=== PATIENT | female | born 2000 | race Caucasian/White ===

== ENCOUNTER 2022-12-30 20:15 | Observation (INO) ==
[2022-12-30 21:01] LABS: Appearance Urine Clear (Clear); Bacteria Urine Automated Negative (Negative); Bilirubin Urine Negative (Negative); Blood Urine Negative (Negative); Color Urine Yellow; Glucose Urine UA Negative (Negative); Ketones Urine Negative (Negative); Leukocyte Esterase Urine 1+ (Negative); Nitrite Urine Negative (Negative); Protein Urine Negative (Negative); RBC Urine Automated 0-4 /hpf (0-4); Specific Gravity Urine 1.026 (1.000-1.030); Urobilinogen Urine Negative (Negative)
[2022-12-30] MEDS ORDERED: LIDOCAINE 1%/EPINEPHRINE 1:100,000 20 ML VIAL ONE (21:15)
[2022-12-30 21:19] LABS: INR 0.9 (0.9-1.1); Partial Thromboplastin Time 29.3 Seconds (21.0-31.0); Prothrombin Time 10.4 Seconds (9.0-12.0)
[2022-12-30] MEDS ORDERED: LORazepam 2 MG/1 ML VIAL IV STA (21:20)
[2022-12-30] MEDS ORDERED: MoRPHine SULFATE 2 MG/ML CARP IV STA (21:20)
[2022-12-30] MEDS ORDERED: ONDANSETRON INJ 2 MG/ML 2 ML VIAL IV STA (21:20)
[2022-12-30 21:25] LABS: Albumin Globulin Ratio 1.5 (0.9-2); Albumin Level 5.1 gm/dl (3.4-5.0); BUN Creatinine Ratio 22.7 (10-20); Bilirubin,Total 0.4 mg/dl (0.2-1.0); Calcium 10.1 mg/dl (8.6-10.3); Creatinine Clr Calc Pharmacy 113.5 ml/min; Est GFR (African American) 143.3 ml/min; Est GFR (Non-African American) 123.6 ml/min; Globulin 3.5 gm/dl (2.5-4.0); Potassium 3.8 mmol/L (3.5-5.1); Total Protein 8.6 gm/dl (6.0-8.3)
[2022-12-30] MEDS ORDERED: PROPOFOL IV EMULSION 10 MG/ML 20 ML VIAL IV ONE (21:39)
[2022-12-30 21:48] LABS: Basophils # (auto) 0.03 K/uL (0.00-0.20); Basophils % (auto) 0.3 %; Eosinophils # (auto) 0.27 K/uL (0.00-0.50); Eosinophils % (auto) 2.5 %; Hematocrit (blood only) 43.2 % (37.0-47.0); Hemoglobin 14.6 g/dl (12.0-16.0); Immature Granulocytes # (auto) 0.05 K/uL (0.01-0.20); Immature Granulocytes % (auto) 0.5 %; Lymphocytes # (auto) 3.51 K/uL (1.20-3.40); Lymphocytes % (auto) 32.4 %; Mean Corpuscular Hemoglobin 29.2 pg (25.0-34.0); Mean Corpuscular Hgb Conc 33.8 g/dL (32.0-36.0); Mean Corpuscular Volume 86.4 fL (80.0-100.0); Mean Platelet Volume 10.7 fL (9.4-12.4); Monocytes # (auto) 0.53 K/uL (0.11-0.59); Monocytes % (auto) 4.9 %; Neutrophils # (auto) 6.43 K/uL (1.40-6.50); Neutrophils % (auto) 59.4 %; Platelet Count 310 K/uL (130-400); RDW Coefficient of Variation 12.7 % (11.5-14.5); White Blood Count 10.82 K/ul (4.8-10.8)
--- NOTE | 2022-12-30 21:50 | History & Physical Report ---
Date of Service December 30, 2022 Assessment & Plan (1) Pneumothorax: Plan: 22yo Female with PMH ADHD here for spontaneous L sided pneumothorax. Left Pneumothorax -thoravent in place -repeat CXR shows improvement of pneumothorax -Pulm consulted -admit to med tele -tylenol for pain control ADHD -continue adderall FENa: regular Code Status: Full DVT PPX: SCDs Dispo: med/tele Devora Hitchcock D.O. PGY 3, FCM History of Present Illness Chief Complaint: Pneumothorax Primary Care Provider: NO PCP 22yo Female with PMH ADHD here for spontaneous L sided pneumothorax. Thoravent was placed in ED. Patient teary and anxious in room. At this time patient denies SOB does complain of ongoing back pain since thoravent was placed. Patient states this has never happened before, no family history of pulmonary conditions. Denies nausea abd pain. Allergies Allergy/AdvReac Type Severity Reaction Status Date / Time Penicillins Allergy Unknown HAPPENED Verified 12/30/22 22:46 AN --HIVES Home Medications Medication Instructions Recorded Confirmed Type dextroamphetamine-amphetamine 10 10 mg PO TID 12/26/21 12/30/22 History mg tablet (Adderall) medroxyprogesterone 150 mg/mL 150 mg IM .[id number] 12/26/21 12/30/22 History intramuscular syringe (Depo-Provera) trazodone 50 mg tablet 50 mg PO HS PRN Sleep 12/26/21 12/30/22 History lifitegrast 5 % eye drops in a 1 drp ophthalmic (eye) DIRECTED 12/30/22 12/30/22 History dropperette (Xiidra) PRN .dry eye Past Med/Surg History Medical History No pertinent family history No pertinent past medical history Surgical History No pertinent past surgical history Social History Smoking Status: Light tobacco smoker Tobacco Type: E-cigarettes / Vaping Second Hand Exposure: No; Do You Dip or Chew Tobacco: No; Hx Alcohol Use: Yes Hx Substance Use: No Preferred Language: Thai Communication Ability: Effective Chief Cook Required: No Beliefs That Will Affect Care: None Current Living Situation: Other Current Living Situation Comment: off campus housing Feels Safe at Home: Yes Assistive Devices: None Physical Exam Constitutional: well developed, well nourished and + in distress Eyes: PERRL, conjunctivae normal, anicteric sclerae ENMT: external ear and nose normal, oropharynx normal Neck: trachea midline, no thyromegaly Respiratory: normal respiratory effort Auscultation: lungs clear to auscultation bilaterally Cardiovascular: Rate/Rhythm: regular rate and regular rhythm Extremities: no edema Chest (Breasts): Additional Comments: thoravent on left chest Gastrointestinal (Abdomen): Inspection/Auscultation: abdomen normal to inspection Percussion/Palpation: abdomen soft; abdomen nontender Skin: no rashes, warm and dry Results & Data Results & Data Vital Signs (Past 12 Hours) Vital Signs Temp Pulse Resp BP Pulse Ox O2 Del Method 12/30/22 21:19 104 H 12/30/22 21:19 107 H 22 99 Room Air 12/30/22 20:16 35.8 C L 79 18 124/84 96 Room Air Supervising Physician Co-Signing Physician Notes Attending addendum: I have physically seen this patient, have supervised the medical residents activities, and agree with the H&P unless as otherwise noted. Assessment and Plan: Spontaneous left pneumothorax- Status post Thora vent placement in ED Admit to medical telemetry Consult pulmonary Acetaminophen 650 mg by mouth every 6 hours as needed for mild pain or fever ADHD- Continue Adderall Resident Activity Tracking Resident Involvement: Resident Care Provided Care Provided: Adult Hospital Medicine
--- NOTE | 2022-12-30 22:12 | Emergency Department Note ---
Pre Sedation Assessment Vital Signs Temp Pulse Resp BP Pulse Ox O2 Del Method 12/30/22 21:19 104 H 12/30/22 21:19 107 H 22 99 Room Air 12/30/22 20:16 35.8 C L 79 18 124/84 96 Room Air Cardiovascular RRR, no murmur, no edema + regular rate + S1 normal and + S2 normal no JVD and no carotid bruit + capillary refill normal Respiratory + respiratory effort normal + breath sounds absent (Decreased breath sounds on left due to known pneumothorax. Rt lung clear) Pre-Sedation Airway Assessment Smoking Status: Current every day smoker Hx Sleep Apnea: No Hx Difficult Intubation: No Short, Thick Neck: No Thyromental Distance: > or= 3.5 Finger Breadths Oral Cavity: no Loose Teeth, no Chipped Teeth, no Dentures or no Dental Abnormalities Mallampati Class: II ASA: ASA1 NPO Status Date of Last Intake of Fluids: 12/30/22 Time of Last Intake of Fluids: 15:00 Date of Last Intake of Solid Food: 12/30/22 Time of Last Intake of Solid Foods: 15:00 Procedure Planning Contraindications for Sedation: none Current Medications Reviewed: Yes Notes The planned sedation has been discussed with the patient. Informed Consent was obtained. I have identified the patient, determined the appropriateness of sedation and have assessed the patient immediately prior to the procedure. All medicine(s) and interventions are by my order.
--- NOTE | 2022-12-30 22:14 | Emergency Department Note ---
Post Sedation Assessment Vital Signs Temp Pulse Resp BP Pulse Ox O2 Del Method 12/30/22 22:10 100 H 11 L 100 12/30/22 22:10 149/97 H 12/30/22 22:05 98 H 8 L 100 12/30/22 22:05 150/106 H 12/30/22 22:00 101 H 23 100 12/30/22 22:00 140/89 12/30/22 21:56 134/105 H 12/30/22 21:56 102 H 12 12/30/22 21:50 19 100 12/30/22 21:45 144/106 H 12/30/22 21:45 100 H 15 97 12/30/22 21:40 95 H 12 100 12/30/22 21:30 113 H 24 98 12/30/22 21:20 112 H 22 99 12/30/22 21:19 103 H 19 99 12/30/22 21:19 104 H 12/30/22 21:19 107 H 22 99 Room Air 12/30/22 20:16 35.8 C L 79 18 124/84 96 Room Air Recovery Score Activity: Moves 4 extremities Respiration: Deep Breath/Cough Consciousness: Fully Awake Oxygen Saturation: > 92% On Room Air Discharge Sedation Level of Care: Phase I Unexpected Event: None Post Sedation Plan On clinical assessment, the patient appears to have tolerated the sedation without complications. Patient is recovering as anticipated. Patient will continue to be monitored by nursing and may be discharged when sedation discharge criteria are met per below protocol. Upon Completions of procedure up to 15 minutes continue every 5 minute vital signs and the P.A.R. score; then discharge to a Phase I or Fast Track to Phase II per the following guidelines: * Discharge Patient to appropriate Phase II area if PAR is 8 or greater or return to pre- procedure baseline. The post - procedure orders will be as directed. * If PAR score is less than 8 or not return to pre-procedure baseline then patient will follow Phase I monitoring till PAR is reached for Phase II. The Phase I may be done in procedure room or may call to secure a Phase I area. * If naloxone or flumazenil are used for reversal, hold in Phase I for continued monitoring from when last reversal dose was given for a minimum of 60 minutes or longer pending the nurse and/or physician discretion of patient condition before discharge to Phase II. Please call the Sedation Physician to re-evaluate and complete post-note for discharge to Phase II area. Do NOT discharge from procedure sedation or Phase 1 until post- sedation evaluation note is complete by procedure /sedation MD Sedation Discharge Instructions to be given to the patient at discharge to home. Sedation Data Time Out Team Members Agree on the Following: Correct Patient, Correct Procedure, Correct Site-Side and Allergies Verified Site Marking Visible after Draping: Yes Team Agrees: Yes Time Out Performed Time: 21:43 Sedation Times Sedation Start Date: 12/30/22 Sedation Start Time: 21:45 Sedation End Date: 12/30/22 Sedation End Time: 21:55 Total Sedation Time: 10
--- NOTE | 2022-12-30 22:18 | Emergency Department Note ---
ED Visit Note This patient has a left-sided pneumothorax. The patient was very anxious and Dr. Belle asked me to assist in sedation. Please refer to the pre and post sedation documentation as well. I explained the risk and the benefits and the patient freely consented both verbally and written on the consent. Procedural Sedation Indication left-sided pneumothorax Total time: 10 minutes. Written consent was obtained after the risks and benefits were explained to the the patient, including, but not limited to aspiration, allergic reaction, breathing difficulties, cardiac complications, vomiting, pain, event recall, bleeding, and/or infection. Pre-sedation examination and paperwork completed. The patient was on 100% oxygen via NRB prior to the procedure. Continous end tidal CO2 monitoring, pulse oximetry, and cardiac monitoring were utilized. Suction, airway equipment, medications, respiratory equipment, and appropriate personnel were prepared prior to the initiation of the procedure. A time out was taken. Sedation was achieved utilizing a total of 50 mg of Propofol IV. She initially received 30 mg IV and received a second dose of 20 mg for a total of 50 mg. After I observed the patient had reached the appropriate level of sedation the main procedure was performed without complication. Sedation was discontinued and the monitoring continued. The patient recovered quickly from the effects of the medication without complication or adverse event. .
[2022-12-30] MEDS ORDERED: ACETAMINOPHEN 500 MG TAB PO STA (23:03)
[2022-12-30] MEDS ORDERED: ACETAMINOPHEN 500 MG TAB ONE (23:07)
--- NOTE | 2022-12-30 23:32 | Emergency Department Note ---
History of Present Illness General Chief Complaint: Referred by Doctor Stated Complaint: BLOOD CLOT?,DOC REF Time Seen by Provider: 12/30/22 20:41 History of Present Illness Onset (ago): day(s) 5 Duration: constant and progressively worsening Onset: during rest Pain Location: substernal Pain Radiation: none Severity: moderate Maximum Pain Intensity: 4 Current Pain Intensity: 4 Quality: + sharp Relieved By: + nothing Exacerbated By: + inspiration Context: no recent illness, no recent surgery, no recent immobilization, no recent travel, no trauma/injury, no new medications or no history of DVT/PE Associated symptoms: + dyspnea and + cough; no nausea, no vomiting, no diaphoresis, no syncope, no palpitations, no fever or no leg swelling Home Medications Medication Instructions Recorded Confirmed Type dextroamphetamine-amphetamine 10 10 mg PO TID 12/26/21 12/30/22 History mg tablet (Adderall) medroxyprogesterone 150 mg/mL 150 mg IM .[id number] 12/26/21 12/30/22 History intramuscular syringe (Depo-Provera) trazodone 50 mg tablet 50 mg PO HS PRN Sleep 12/26/21 12/30/22 History lifitegrast 5 % eye drops in a 1 drp ophthalmic (eye) DIRECTED 12/30/22 12/30/22 History dropperette (Xiidra) PRN .dry eye Allergies Allergy/AdvReac Type Severity Reaction Status Date / Time Penicillins Allergy Unknown HAPPENED Verified 12/30/22 22:46 AN --HIVES Past Med/Surg History Medical History No pertinent family history No pertinent past medical history Surgical History No pertinent past surgical history Social History Smoking Status: Current every day smoker Tobacco Type: E-cigarettes / Vaping Hx Substance Use: No Preferred Language: Turkish Feels Safe at Home: Yes Physical Exam Vital Signs Vital Signs - 24 hr 12/30/22 20:16 12/30/22 21:19 12/30/22 21:19 Temperature 35.8 C L Temperature Source Temporal Artery Scan Pulse Rate 79 107 H 104 H Pulse Rate [Finger] Pulse Rate from SpO2 Sensor Pulse Rhythm Regular Pulse Rhythm [Finger] Pulse Strength [Finger] Respiratory Rate 18 22 Respiratory Effort / Characteristics Respiratory Depth Normal Respiratory Pattern Blood Pressure 124/84 Blood Pressure [Right Arm] Blood Pressure Mean 97 Blood Pressure Mean [Right Arm] Blood Pressure Position [Right Arm] Pulse Oximetry 96 99 Oxygen Delivery Method Room Air Room Air Oxygen Flow Rate Sepsis Recent Fever Within 48 Hours No Sepsis New/Unexplained Change in Mental Status N/A Sepsis Action Taken by Nursing No Action Required End-Tidal CO2 End Tidal CO2 (18-54mmHg) 12/30/22 21:19 12/30/22 21:20 12/30/22 21:30 Temperature Temperature Source Pulse Rate 103 H 112 H 113 H Pulse Rate [Finger] Pulse Rate from SpO2 Sensor 106 H 111 H 111 H Pulse Rhythm Pulse Rhythm [Finger] Pulse Strength [Finger] Respiratory Rate 19 22 24 Respiratory Effort / Characteristics Respiratory Depth Respiratory Pattern Blood Pressure Blood Pressure [Right Arm] Blood Pressure Mean Blood Pressure Mean [Right Arm] Blood Pressure Position [Right Arm] Pulse Oximetry 99 99 98 Oxygen Delivery Method Oxygen Flow Rate Sepsis Recent Fever Within 48 Hours Sepsis New/Unexplained Change in Mental Status Sepsis Action Taken by Nursing End-Tidal CO2 End Tidal CO2 (18-54mmHg) 12/30/22 21:40 12/30/22 21:45 12/30/22 21:45 Temperature Temperature Source Pulse Rate 95 H 100 H Pulse Rate [Finger] Pulse Rate from SpO2 Sensor 95 H 103 H Pulse Rhythm Pulse Rhythm [Finger] Pulse Strength [Finger] Respiratory Rate 12 15 Respiratory Effort / Characteristics Respiratory Depth Respiratory Pattern Blood Pressure 144/106 H Blood Pressure [Right Arm] Blood Pressure Mean 113 Blood Pressure Mean [Right Arm] Blood Pressure Position [Right Arm] Pulse Oximetry 100 97 Oxygen Delivery Method Oxygen Flow Rate Sepsis Recent Fever Within 48 Hours Sepsis New/Unexplained Change in Mental Status Sepsis Action Taken by Nursing End-Tidal CO2 26 35 End Tidal CO2 (18-54mmHg) 12/30/22 21:50 12/30/22 21:56 12/30/22 21:56 Temperature Temperature Source Pulse Rate 102 H Pulse Rate [Finger] Pulse Rate from SpO2 Sensor 101 H Pulse Rhythm Pulse Rhythm [Finger] Pulse Strength [Finger] Respiratory Rate 19 12 Respiratory Effort / Characteristics Respiratory Depth Respiratory Pattern Blood Pressure 134/105 H Blood Pressure [Right Arm] Blood Pressure Mean 107 Blood Pressure Mean [Right Arm] Blood Pressure Position [Right Arm] Pulse Oximetry 100 Oxygen Delivery Method Oxygen Flow Rate Sepsis Recent Fever Within 48 Hours Sepsis New/Unexplained Change in Mental Status Sepsis Action Taken by Nursing End-Tidal CO2 27 31 End Tidal CO2 (18-54mmHg) 12/30/22 22:00 12/30/22 22:00 12/30/22 22:05 Temperature Temperature Source Pulse Rate 101 H Pulse Rate [Finger] Pulse Rate from SpO2 Sensor 99 H Pulse Rhythm Pulse Rhythm [Finger] Pulse Strength [Finger] Respiratory Rate 23 Respiratory Effort / Characteristics Respiratory Depth Respiratory Pattern Blood Pressure 140/89 150/106 H Blood Pressure [Right Arm] Blood Pressure Mean 99 119 Blood Pressure Mean [Right Arm] Blood Pressure Position [Right Arm] Pulse Oximetry 100 Oxygen Delivery Method Oxygen Flow Rate Sepsis Recent Fever Within 48 Hours Sepsis New/Unexplained Change in Mental Status Sepsis Action Taken by Nursing End-Tidal CO2 24 End Tidal CO2 (18-54mmHg) 12/30/22 22:05 12/30/22 22:10 12/30/22 22:10 Temperature Temperature Source Pulse Rate 98 H 100 H Pulse Rate [Finger] Pulse Rate from SpO2 Sensor 98 H 99 H Pulse Rhythm Pulse Rhythm [Finger] Pulse Strength [Finger] Respiratory Rate 8 L 11 L Respiratory Effort / Characteristics Respiratory Depth Respiratory Pattern Blood Pressure 149/97 H Blood Pressure [Right Arm] Blood Pressure Mean 122 Blood Pressure Mean [Right Arm] Blood Pressure Position [Right Arm] Pulse Oximetry 100 100 Oxygen Delivery Method Oxygen Flow Rate Sepsis Recent Fever Within 48 Hours Sepsis New/Unexplained Change in Mental Status Sepsis Action Taken by Nursing End-Tidal CO2 32 6 End Tidal CO2 (18-54mmHg) 12/30/22 22:17 12/30/22 22:57 Temperature Temperature Source Pulse Rate 91 H Pulse Rate [Finger] 90 Pulse Rate from SpO2 Sensor Pulse Rhythm Pulse Rhythm [Finger] Regular Pulse Strength [Finger] Normal Respiratory Rate 18 20 Respiratory Effort / Characteristics Non-Labored Spontaneous Non-Labored Spontaneous Respiratory Depth Normal Normal Respiratory Pattern Regular Blood Pressure Blood Pressure [Right Arm] 144/106 H 130/96 Blood Pressure Mean Blood Pressure Mean [Right Arm] 107 Blood Pressure Position [Right Arm] Sitting Pulse Oximetry 100 100 Oxygen Delivery Method Nasal Cannula Room Air Oxygen Flow Rate 2 Sepsis Recent Fever Within 48 Hours Sepsis New/Unexplained Change in Mental Status Sepsis Action Taken by Nursing End-Tidal CO2 End Tidal CO2 (18-54mmHg) 35 Physical Exam GENERAL: oriented to person, place, and time. appears well-developed and well- nourished. HENT: Exam performed. - Head: Normocephalic and atraumatic. EYES: Conjunctivae and EOM are normal. Right eye exhibits no discharge. Left eye exhibits no discharge. No scleral icterus. NECK: Normal range of motion. Neck supple. No JVD present. CV: Normal rate, regular rhythm, normal heart sounds and intact distal pulses. There is no peripheral edema. Palpable radial pulses bue. PULM/CHEST: Diminished/absent breath sounds on the left. ABD: The abdomen is soft. There is no tenderness. NEURO: Motor and sensation grossly intact. SKIN: Skin is warm and dry. He is not diaphoretic. PSYCH: normal mood and affect. Behavior is normal. Judgment and thought content normal. Procedures Free Text Procedures Tube Thoracostomy/Thoravent placement Indication: Pneumothorax Written consent was obtained after the risks and benefits were explained, including but not limited to bleeding infection. At this time, the risks of the procedure are less than the risks of NOT performing the procedure. A time out was taken and the correct patient and site identified. The patient was prepped in the standard surgical fashion. 1% lidocaine with epinephrine was infused over the 2nd intercostal space in the midclavicular line. A 1 cm incision was made and the thoravent was inserted into the pleural space using the trocar. The right diaphragm started auscultating and the Thoravent was secured to the patient's skin using the adhesive. Syringe was used to aspirate air out of the thoracic cavity.A postoperative x-ray was then performed which showed the thoravent in the correct position. Course Course 2040: The patient was evaluated in room A1. A complete history and physical exam was performed Cardiac monitoring: An order was placed for continuous cardiac monitoring. The monitor shows a rate of 90 with sinus rhythm interpreted by me 2100: Patient has left-sided pneumothorax on chest x-ray approximately 8 cm. Patient will be moved to the resuscitation bay for thoracostomy tube placement. Patient is extremely anxious and crying and stating she wants to leave. I explained to her I would highly advise against this and if she does she would have to leave AMA. After discussion with the patient and her brother who is a nursing associate as well as her mother who is on the cell phone the patient is in agreement to have Thora vent placed. 2205: Patient was extremely anxious and was not cooperative constantly moving and crying very emotional yelling that she could not handle the procedure. For this reason the patient had the Thora vent placed under conscious sedation. Patient's conscious sedation was performed by Dr. Diaz, see his procedure note. Thora vent was successfully placed. See procedure note. Postprocedure chest x-ray shows a residual pneumothorax approximately 3 cm in size. 2212: [facility] team will admit the patient. Dr. Hooker is aware of the patient. He asked that Dr. Box be consulted from pulmonology and ask if the patient should go to telemetry or ICU. Spoke with Dr. Box who states patient can go to telemetry. 2325: Vital signs stable. Aspiration was performed from the Thora vent and a repeat chest x-ray was performed which shows that the lung has reinflated well. No residual pneumothorax is seen by me. Patient admitted to the [facility] team Dr. Hooker's team is aware of the patient. Administered Medications Discontinued Medications Acetaminophen (Acetaminophen 500 Mg Tab) 1,000 mg PO NOW STA Stop: 12/30/22 23:04 Last Admin: 12/30/22 23:27 Dose: 1,000 mg Documented By: SONIA Acetaminophen (Acetaminophen 500 Mg Tab) Confirm Administered Dose 1,000 mg .ROUTE .STK-MED ONE Stop: 12/30/22 23:08 Last Admin: 12/30/22 23:09 Dose: Not Given Documented By: SONIA Lidocaine/Epinephrine (Lidocaine 1%/Epinephrine 1:100,000 20 Ml Vial) Confirm Administered Dose 10 ml .ROUTE .STK-MED ONE Stop: 12/30/22 21:16 Last Admin: 12/30/22 21:44 Dose: 10 ml Documented By: DIEGO Lorazepam (Lorazepam 2 Mg/1 Ml Vial) 1 mg IV NOW STA Stop: 12/30/22 21:21 Last Admin: 12/30/22 21:33 Dose: 1 mg Documented By: DIEGO Morphine Sulfate (Morphine Sulfate 2 Mg/Ml Carp) 2 mg IV NOW STA Stop: 12/30/22 21:21 Last Admin: 12/30/22 22:13 Dose: 2 mg Documented By: DIEGO Ondansetron HCl (Ondansetron Inj 2 Mg/Ml 2 Ml Vial) 4 mg IV NOW STA Stop: 12/30/22 21:21 Last Admin: 12/30/22 21:31 Dose: 4 mg Documented By: DIEGO Propofol (Propofol Iv Emulsion 10 Mg/Ml 20 Ml Vial) Confirm Administered Dose 200 mg IV .STK-MED ONE Stop: 12/30/22 21:40 Last Admin: 12/30/22 22:00 Dose: 200 mg Documented By: DIEGO Co-signed By: [facility] Medical Decision Making Laboratory Data Attestation: I reviewed the patient's lab results. 12/30/22 20:30 12/30/22 20:30 Labs: Lab Results 12/30/22 12/30/22 12/30/22 Range/Units 20:30 20:30 20:30 WBC 10.82 H (4.8-10.8) K/ul RBC 5.00 (4.20-5.40) M/uL Hgb 14.6 (12.0-16.0) g/dl Hct 43.2 (37.0-47.0) % MCV 86.4 (80.0-100.0) fL MCH 29.2 (25.0-34.0) pg MCHC 33.8 (32.0-36.0) g/dL RDW Std Deviation 40.0 (36.4-46.3) fL RDW Coeff of Asim 12.7 (11.5-14.5) % Plt Count 310 (130-400) K/uL MPV 10.7 (9.4-12.4) fL Immature Gran % (Auto) 0.5 % Neut % (Auto) 59.4 % Lymph % (Auto) 32.4 % [facility] % (Auto) 4.9 % Eos % (Auto) 2.5 % Baso % (Auto) 0.3 % Neut # (Auto) 6.43 (1.40-6.50) K/uL Lymph # (Auto) 3.51 H (1.20-3.40) K/uL [facility] # (Auto) 0.53 (0.11-0.59) K/uL Eos # (Auto) 0.27 (0.00-0.50) K/uL Baso # (Auto) 0.03 (0.00-0.20) K/uL Immature Gran # (Auto) 0.05 (0.01-0.20) K/uL PT 10.4 (9.0-12.0) Seconds INR 0.9 (0.9-1.1) APTT 29.3 (21.0-31.0) Seconds PTT Ratio 1.0 D-Dimer Cancelled Sodium 138 (136-145) mmol/L Potassium 3.8 (3.5-5.1) mmol/L Chloride 106 (98-107) mmol/L Carbon Dioxide 24 (21-32) mmol/L Anion Gap 8 (3-11) BUN 15 (6-23) mg/dl Creatinine 0.66 (0.6-1.2) mg/dl Est Cr Clr Drug Dosing 113.5 ml/min Est GFR ( Amer) 143.3 ml/min Est GFR (Non-Af Amer) 123.6 ml/min BUN/Creatinine Ratio 22.7 H (10-20) Glucose 81 (70-99(Fasting)) mg/dl Calcium 10.1 (8.6-10.3) mg/dl Total Bilirubin 0.4 (0.2-1.0) mg/dl AST 17 (13-39) U/L ALT 13 (7-52) U/L Alkaline Phosphatase 40 (34-104) U/L Troponin I High Sens 3.0 (0-14) pg/ml Total Protein 8.6 H (6.0-8.3) gm/dl Albumin 5.1 H (3.4-5.0) gm/dl Globulin 3.5 (2.5-4.0) gm/dl Albumin/Globulin Ratio 1.5 (0.9-2) Urine Color Urine Appearance (Clear) Urine pH (4.5-7.5) Ur Specific Saxon (1.000-1.030) Urine Protein (Negative) Urine Glucose (UA) (Negative) Urine Ketones (Negative) Urine Blood (Negative) Urine Nitrite (Negative) Urine Bilirubin (Negative) Urine Urobilinogen (Negative) Ur Leukocyte Esterase (Negative) Urine WBC (Auto) (0-5) /hpf Urine RBC (Auto) (0-4) /hpf U Hyaline Cast (Auto) (0-5) /lpf U Epithel Cells (Auto) (0-5) /lpf Urine Bacteria (Auto) (Negative) 10/14/23 Range/Units 20:30 WBC (4.8-10.8) K/ul RBC (4.20-5.40) M/uL Hgb (12.0-16.0) g/dl Hct (37.0-47.0) % MCV (80.0-100.0) fL MCH (25.0-34.0) pg MCHC (32.0-36.0) g/dL RDW Std Deviation (36.4-46.3) fL RDW Coeff of Asim (11.5-14.5) % Plt Count (130-400) K/uL MPV (9.4-12.4) fL Immature Gran % (Auto) % Neut % (Auto) % Lymph % (Auto) % [facility] % (Auto) % Eos % (Auto) % Baso % (Auto) % Neut # (Auto) (1.40-6.50) K/uL Lymph # (Auto) (1.20-3.40) K/uL [facility] # (Auto) (0.11-0.59) K/uL Eos # (Auto) (0.00-0.50) K/uL Baso # (Auto) (0.00-0.20) K/uL Immature Gran # (Auto) (0.01-0.20) K/uL PT (9.0-12.0) Seconds INR (0.9-1.1) APTT (21.0-31.0) Seconds PTT Ratio D-Dimer Sodium (136-145) mmol/L Potassium (3.5-5.1) mmol/L Chloride (98-107) mmol/L Carbon Dioxide (21-32) mmol/L Anion Gap (3-11) BUN (6-23) mg/dl Creatinine (0.6-1.2) mg/dl Est Cr Clr Drug Dosing ml/min Est GFR ( Amer) ml/min Est GFR (Non-Af Amer) ml/min BUN/Creatinine Ratio (10-20) Glucose (70-99(Fasting)) mg/dl Calcium (8.6-10.3) mg/dl Total Bilirubin (0.2-1.0) mg/dl AST (13-39) U/L ALT (7-52) U/L Alkaline Phosphatase (34-104) U/L Troponin I High Sens (0-14) pg/ml Total Protein (6.0-8.3) gm/dl Albumin (3.4-5.0) gm/dl Globulin (2.5-4.0) gm/dl Albumin/Globulin Ratio (0.9-2) Urine Color Yellow Urine Appearance Clear (Clear) Urine pH 6.0 (4.5-7.5) Ur Specific Saxon 1.026 (1.000-1.030) Urine Protein Negative (Negative) Urine Glucose (UA) Negative (Negative) Urine Ketones Negative (Negative) Urine Blood Negative (Negative) Urine Nitrite Negative (Negative) Urine Bilirubin Negative (Negative) Urine Urobilinogen Negative (Negative) Ur Leukocyte Esterase 1+ H (Negative) Urine WBC (Auto) 5-10 H (0-5) /hpf Urine RBC (Auto) 0-4 (0-4) /hpf U Hyaline Cast (Auto) 1-5 (0-5) /lpf U Epithel Cells (Auto) 10-20 H (0-5) /lpf Urine Bacteria (Auto) Negative (Negative) Imaging Data Chest x-ray: Attestation: I personally reviewed and interpreted this imaging study as follows: My impression: CXR 1: Patient has left-sided pneumothorax on chest x-ray approximately 8 cm. CXR 2: Thoravent in place chest x-ray shows a residual pneumothorax appro ximately 3 cm in size. CXR 3: Thoravent and a repeat chest x-ray was performed which shows that the lung has reinflated well. No residual pneumothorax is seen by me. ECG Data Attestation: I personally reviewed and interpreted this ECG as follows: Indication: chest pain Rate (beats per minute): 96 Rhythm: normal sinus Findings: no ST depression, no ST elevation or no prolonged QT Additional Comments: QRS 78 MDM Narrative 2040: The patient was evaluated in room A1. A complete history and physical exam was performed Cardiac monitoring: An order was placed for continuous cardiac monitoring. The monitor shows a rate of 90 with sinus rhythm interpreted by me 2100: Patient has left-sided pneumothorax on chest x-ray approximately 8 cm. Patient will be moved to the resuscitation bay for thoracostomy tube placement. Patient is extremely anxious and crying and stating she wants to leave. I explained to her I would highly advise against this and if she does she would have to leave AMA. After discussion with the patient and her brother who is a nursing associate as well as her mother who is on the cell phone the patient is in agreement to have Thora vent placed. 2205: Patient was extremely anxious and was not cooperative constantly moving a nd crying very emotional yelling that she could not handle the procedure. For this reason the patient had the Thora vent placed under conscious sedation. Patient's conscious sedation was performed by Dr. Diaz, see his procedure note. Thora vent was successfully placed. See procedure note. Postprocedure chest x-ray shows a residual pneumothorax approximately 3 cm in size. 2212: [facility] team will admit the patient. Dr. Hooker is aware of the patient. He asked that Dr. Bxo be consulted from pulmonology and ask if the patient should go to telemetry or ICU. Spoke with Dr. Box who states patient can go to telemetry. 2325: Vital signs stable. Aspiration was performed from the Thora vent and a repeat chest x-ray was performed which shows that the lung has reinflated well. No residual pneumothorax is seen by me. Patient admitted to the [facility] team Dr. Hooker's team is aware of the patient. Impression & Plan Pneumothorax Discharge Plan Visit Data Chief Complaint: Referred by Doctor Stated Complaint: BLOOD CLOT?,DOC REF ED Provider: Juan Carlos Belle Discharge Problem: Pneumothorax Patient Disposition: Admitted As Inpatient Forms Stand Alone Forms: My [facility] Prescriptions Prescriptions: No Action trazodone 50 mg Tablet 50 mg PO HS PRN (Reason: Sleep) dextroamphetamine-amphetamine [Adderall] 10 mg Tablet 10 mg PO TID Rx Instructions: administer doses at least 4-6 hours apart medroxyprogesterone [Depo-Provera] 150 mg/mL Syringe 150 mg IM .[id number] Xiidra 5 % Dropperette 1 drp OPHTHALMIC (EYE) DIRECTED PRN (Reason: .dry eye) Rx Instructions: administer approximately 12 hours apart Referrals Referrals: PCP,NO [Primary Care Provider] - Pneumothorax Qualifiers: Pneumothorax type: spontaneous, primary Qualified Code(s): J93.11 - Primary sp ontaneous pneumothorax
[2022-12-31] MEDS ORDERED: POLYETHYLENE (MIRALAX) 17 GM PACK PO PRN (01:26)
[2022-12-31] MEDS ORDERED: ACETAMINOPHEN 325 MG TAB PO PRN (01:26)
[2022-12-31] MEDS: AMPHETAMINE ASP/SULF/DEXTRAMPH 10 MG TAB PO SCH ×3 (08:28→13:31)
[2022-12-31] MEDS: ACETAMINOPHEN 500 MG TAB PO PRN ×2 (08:58→13:31)
--- NOTE | 2022-12-31 08:58 | XRay Report ---
XR chest 2V PA/lateral, XR chest 1V portable, XR chest 1V portable CLINICAL HISTORY: cp sob TECHNIQUE: 2 views of the chest were obtained at 2053 hours, 2158 hours, and at 2322 hours. Comparison: None available at the time of this dictation. FINDINGS: 2053 hours: No lines and tubes are seen. The cardiomediastinal silhouette is normal. The lungs are clear. There i s a large left pneumothorax. 2158 hours: Interval placement of a left chest tube with decrease in size of the left pneumothorax. 2321 hours: Left chest tube is again seen, the previously noted pneumothorax has essentially resolved. Atelectasi s is seen at the left lung base. IMPRESSION: An initial large left pneumothorax is seen. Following placement of a left chest tube, it has essentia lly resolved by the final image. ACT 112: Negative or not required by law. Electronically signed by: Blade Mederos M.D. 12/31/2022 8:56 AM
--- NOTE | 2022-12-31 10:18 | Pulmonary Consultation ---
Date of Consultation December 31, 2022 Assessment & Plan (1) Pneumothorax: Pneumothorax type: spontaneous, primary Qualified Code(s): J93.11 - Primary spontaneous pneumothorax (2) Primary spontaneous pneumothorax: (3) Chest pain: Plan CT chest 12/31/2022 personally reviewed: Left apical bleb is appreciated Left lower lobe linear scarring/atelectasis No mediastinal lymphadenopathy -- Spontaneous primary pneumothorax Chest tube was placed 12/30/2022 in the ED -- Vaping Advised to quit Plan: Chest x-ray from today does not show any significant change compared to before Order CT chest to find out if there is any reason for her spontaneous pneumothorax like blebs Pain management We will try to clamp the tube and reexamine x-ray in 3-4 hours. If there is no worsening with tube clamped then okay to remove the tube today If there is any worsening then continue with the chest tube. Patient has commitment tomorrow and she is very worried about it. From pulmonary perspective if it is very important for the patient to have the dessertation then patient can be discharged with a Thora vent. Make sure to keep it clean. Would recommend repeat a chest x-ray in 3-4 days. Follow-up in the outpatient clinic following an x-ray. Patient cannot fly for at least 6 weeks from the time of resolvent of pneumothorax No scuba diving Patient will likely need blebectomy in future if she gets another pneumothorax, the likelihood of which is high Please note the above document was generated using voice recognition software. It may contain grammatical, syntax or spelling errors.Any formal questions or concerns about the content, text or information contained within the body of this dictation should be directly addressed to the provider for clarification. History of Present Illness Attending Physician: Artie Herrera DO History of Present Illness 22-year-old female present to the hospital with complaints of left-sided chest pain Past medical history: ADHD Pulmonary consulted for left-sided pneumothorax Patient already had a Thora vent placed by Dr. Belle in the ED. I was called and given signout from Dr. Yoshi wells yesterday At the time of examination patient was not in any respiratory distress Patient's mother was also in the room at the time of examination She was saturating well on room air. As per the patient she had issues with chest pain approximately 3-4 days ago while she was typing. Denies any recent upper respiratory infection No fits of coughing. No retching She usually have allergic rhinitis and clears her nose strenuously. Denies any constipation No recent history of trauma No headache, no nausea, no vomiting Patient's mother denies any recurrent infections as a child Social history: Vaping Juul No family history of asthma Allergies Allergy/AdvReac Type Severity Reaction Status Date / Time Penicillins Allergy Unknown HAPPENED Verified 12/30/22 22:46 AN INFANT--HIVES Home Medications Medication Instructions Recorded Confirmed Type dextroamphetamine-amphetamine 10 10 mg PO TID 12/26/21 12/30/22 History mg tablet (Adderall) medroxyprogesterone 150 mg/mL 150 mg IM .[id number] 12/26/21 12/30/22 History intramuscular syringe (Depo-Provera) trazodone 50 mg tablet 50 mg PO HS PRN Sleep 12/26/21 12/30/22 History lifitegrast 5 % eye drops in a 1 drp ophthalmic (eye) DIRECTED 12/30/22 12/30/22 History dropperette (Xiidra) PRN .dry eye Patient History Medical History No pertinent family history No pertinent past medical history Surgical History No pertinent past surgical history Social History Smoking Status: Light tobacco smoker Tobacco Type: E-cigarettes / Vaping Second Hand Exposure: No; Do You Dip or Chew Tobacco: No; Tobacco Cessation Education Requested by Patient: No Hx Alcohol Use: Yes Hx Substance Use: No Preferred Language: Malay Communication Ability: Effective Staffing Clerk Required: No Beliefs That Will Affect Care: None Current Living Situation: Other Current Living Situation Comment: off campus housing Other Information That Helps Us Care for You: No Feels Safe at Home: Yes Assistive Devices: None Review of Systems Review of Systems: All systems reviewed & are unremarkable except as noted in HPI & below Physical Exam Physical Exam: Constitutional: No acute distress HEENT: EOMI, PERRLA Respiratory system: Decreased air entry on the left side, no wheeze, no rhonchi, mild crackles left lower lobe CVS: S1-S2 positive, no murmurs or gallops Abdomen: Soft, nontender, nondistended, positive bowel sounds x4 Extremities: +2 pulses bilaterally radialis/ dorsalis pedis, no cyanosis, no edema Neuro: Awake alert oriented x3 Psych: Normal mood and affect G/U: No [place] Skin: no rashes, warm and dry Lymphatic: no cervical or axillary lymphadenopathy Results & Data Results & Data Vital Signs (Past 12 Hours) Vital Signs Temp Pulse Pulse Resp BP Pulse Ox Pulse Ox 12/31/22 08:53 85 16 92/61 L 98 12/31/22 07:57 77 12/31/22 02:02 92 H 12/31/22 01:39 12/31/22 01:26 36.5 C 95 H 18 112/75 99 12/31/22 01:26 99 12/30/22 22:57 90 20 130/96 100 12/30/22 22:17 91 H 18 144/106 H 100 O2 Del Method O2 Del Method O2 Flow Rate 12/31/22 08:53 Room Air 12/31/22 07:57 12/31/22 02:02 12/31/22 01:39 Room Air 12/31/22 01:26 Room Air 12/31/22 01:26 Room Air 12/30/22 22:57 Room Air 12/30/22 22:17 Nasal Cannula 2 Laboratory Results 12/30/22 20:30 12/30/22 20:30 PG Care Time/CCT Total # of Minutes Spent Total Time Spent with Patient: Total time spent is greater than 50% in coordination of care (as documented) at patient's floor/unit and/or counseling patient: [place] [address] INT INP/OBS CARE 3/75MIN Patient Type New Diagnoses Pneumothorax J93.11 Pneumothorax type: spontaneous, primary Primary spontaneous pneumothorax J93.11 Chest pain R07.9
--- NOTE | 2022-12-31 10:59 | XRay Report ---
XR chest 1V portable CLINICAL HISTORY: f/u TECHNIQUE: Single frontal radiograph of the chest was obtained. Comparison: Comparison is made to chest radiographs 12/30/2022 FINDINGS: Stable appearance of right chest tube. The cardiomediastinal silhouette is normal. The lungs are bessy r. A tiny left apical pneumothorax measuring 4 mm is unchanged from prior exam. IMPRESSION: Minimal left apical pneumothorax is unchanged from prior exam, a chest tube is again noted. ACT 112: Negative or not required by law. Electronically signed by: Blade Mederos M.D. 12/31/2022 10:57 AM
--- NOTE | 2022-12-31 11:46 | CT Scan Report ---
CT chest diagnostic wo con CLINICAL HISTORY: r/o blebs TECHNIQUE: Multidetector row helical CT of the chest was performed. Coronal and sagittal reformations were obtained. Automated dose lowering techniques and/or adjustment according to patient size were u tilized for this exam. CT DOSE: 273.54 mGy.cm Comparison: Comparison is made to chest radiograph 12/31/2022 FINDINGS: Lungs and pleura: Left chest tube is seen. Minimal left apical pneumothorax is seen. There is a 3 mm nodule in the right middle lobe (series 4 image 100) and a 5 mm pulmonary nodule in the right lower l obe (image 111). Atelectasis is the left lung base. Heart and pericardium: Heart size is normal. No pericardial effusion. Vessels: Unremarkable. Mediastinum and rosa: Unremarkable. Chest wall and lower neck: Minimal left subcutaneous emphysema is seen. Abdomen: Unremarkable. Bones: Unremarkable. IMPRESSION: 1. Tiny left apical pneumothorax remains with mild atelectasis in the left lung base. A left chest t ube is in place. 2. Tiny pulmonary nodules as above. According to Fleischner criteria, no follow-up is required in lo w risk patients, in high-risk patients, a 12 month follow-up CT can be optionally performed. ACT 112: Negative or not required by law. Electronically signed by: Blade Mederos M.D. 12/31/2022 11:44 AM
--- NOTE | 2022-12-31 15:27 | Hospitalist Progress Note ---
Date of Service December 31, 2022 Assessment & Plan (1) Pneumothorax: Plan 22yo Female with PMH ADHD here for spontaneous L sided pneumothorax. Left Pneumothorax - Thoravent in place - Repeat CXR shows no significant change compared to previous CXR with regards to minimal apical PTX - Chest CT: Left apical bleb seen - Tylenol dose increased to 1000mg for pain control. If suboptimal, may consider changing adding Toradol - Pulmonology consulted: Will clamp tube and re-examine CXR in 3-4 hours. If no worsening, then may consider removing the tube today. If there is any worsening, chest tube will be continued. 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 Recommend repeat CXR in 3-4 days and follow up in outpatient clinic following that. Patient needs blebectomy in the future if she gets another PTX (high likelihood) - Patient was counseled about risks of continued vaping and was advised to stop. ADHD - Continue adderall FENa: regular Code Status: Full DVT PPX: SCDs Dispo: med/tele Admission and Anticipated Discharge Date Admission Date: December 30, 2022 Miranda Rojas is a PMHx of ADHD that was admitted due to spontaneous left-sided pneumothorax. Today, she was evaluated at bedside and found to be clinically and hemodynamically stable, AAOx3, uncomfortable, and in no acute distress. She refers having pain from the tube insertion site, and does not wish to walk due to this discomfort. She denies chest pain, SOB, fevers, chills, N/V/C/D, or any other symptom. Review of Systems Review of Systems: As per HPI. Physical Exam Physical Exam: General: Alert. Oriented to person, time, and place. Afebrile. Uncomfortable. No acute distress. Cardiac: Regular rate and rhythm, no murmurs/rubs/gallops. Respiratory: Clear to auscultation bilaterally a/p, no wheezes/rales/rhonchi. No increased work of breathing. Symmetrical chest rise. No respiratory distress. Abdomen: Soft, nontender, nondistended. Bowel sounds present. Lower Extremities: No lower extremity edema or swelling. No deep calf pain. Nichole's negative bilaterally. Results & Data Results & Data Vital Signs (Past 12 Hours) Vital Signs Temp Pulse Pulse Resp BP Pulse Ox O2 Del Method 12/31/22 10:50 36.7 C 83 16 114/72 98 Room Air 12/31/22 08:53 85 16 92/61 L 98 Room Air 12/31/22 07:57 77 Resident Activity Tracking Resident Involvement: Resident Care Provided Care Provided: Adult Hospital Medicine (1) Pneumothorax Pneumothorax type: spontaneous, primary Qualified Code(s): J93.11 - Primary spontaneous pneumothorax
--- NOTE | 2022-12-31 16:16 | XRay Report ---
XR chest 1V portable CLINICAL HISTORY: f/u tube clamped TECHNIQUE: Single frontal radiograph of the chest was obtained. Comparison: None available at the time of this dictation. FINDINGS: Exam is limited by patient rotation. Previously noted chest tube again seen left upper lobe with some repositioning. The cardiomediastinal silhouette is normal. The lungs are clear. Tiny apical pneumoth orax is seen with partial visualization of a bleb, similar to prior exam. IMPRESSION: Tiny apical pneumothorax is likely unchanged in size from prior exam allowing for differences in tech nique. ACT 112: Negative or not required by law. Electronically signed by: Blade Mederos M.D. 12/31/2022 4:14 PM
--- NOTE | 2022-12-31 16:31 | Discharge Summary ---
Date of Service December 31, 2022 Admission HPI Per Admitting Provider 22yo Female with PMH ADHD here for spontaneous L sided pneumothorax. Thoravent was placed in ED. Patient teary and anxious in room. At this time patient denies SOB does complain of ongoing back pain since thoravent was placed. Patient states this has never happened before, no family history of pulmonary conditions. Denies nausea abd pain. Admission Exam Per Admitting Provider Constitutional: well developed, well nourished and + in distress Eyes: PERRL, conjunctivae normal, anicteric sclerae ENMT: external ear and nose normal, oropharynx normal Neck: trachea midline, no thyromegaly Respiratory: normal respiratory effort Auscultation: lungs clear to auscultation bilaterally Cardiovascular: Rate/Rhythm: regular rate and regular rhythm Extremities: no edema Chest (Breasts): Additional Comments: thoravent on left chest Gastrointestinal (Abdomen): Inspection/Auscultation: abdomen normal to inspection Percussion/Palpation: abdomen soft; abdomen nontender Skin: no rashes, warm and dry Principal Diagnosis Left-sided Spontaneous Pneumothorax Discharge Exam General: Alert. Oriented to person, time, and place. Afebrile. Uncomfortable. No acute distress. Cardiac: Regular rate and rhythm, no murmurs/rubs/gallops. Respiratory: Clear to auscultation bilaterally. No increased work of breathing. Symmetrical chest rise. No respiratory distress. Abdomen: Soft, nontender, nondistended. Bowel sounds present. Lower Extremities: No lower extremity edema or swelling. No deep calf pain. Nichole's negative bilaterally. Discharge Data Allergies Allergy/AdvReac Type Severity Reaction Status Date / Time Penicillins Allergy Unknown HAPPENED Verified 12/30/22 22:46 AN --HIVES Consultations 12/30/22 22:12 Consult Pulmonology Routine ED Decision to Admit Stat 12/31/22 12:55 Burn CD for patient Stat Ordered Studies 12/31/22 10:17 CT chest diagnostic wo con Urgent Hospital Course (1) Pneumothorax: Smitha Rojas is a PMHx of ADHD that was admitted due to spontaneous left-sided pneumothorax. Left Pneumothorax (Acute, uncomplicated) - Thoravent placed as management - Repeat CXR shows improvement of her left apical PTX - Chest CT: Left apical bleb seen - Tylenol 1000mg used for pain control. - Pulmonology consulted: Clamped chest tube and re-examined CXR in 3-4 hours. Since there was no worsening, her chest tube was removed. - Patient to be discharged today with the following recommendations: Repeat CXR in 3-4 days and follow up in outpatient clinic following that. Patient needs blebectomy in the future if she gets another PTX (high likelihood) - Patient was counseled about risks of continued vaping and was advised to stop. ADHD (Chronic, stable) - Continue adderall after discharge Patient was evaluated today and found to be clinically and hemodynamically stable. She was found to be AAOx3, afebrile, and in no acute distress. She was found fit to be discharged today. All questions answered. Total Time Total Time Spent Total Time Spent (In Minutes): <30 Discharge Plan Discharge Items Patient Disposition: Home - Self-Care Reason For Visit: PNEUMOTHORAX Discharge Diagnosis: Left-sided apical Pneumthorax Activity: Per Instructions section Non-emergency contact: Primary Care Provider Call non-emergency contact if: you have any medication questions and your temperature is above 101 Follow-up/Referrals: PCP,NO [Primary Care Provider] - Diet: Regular Ambulatory Orders: XR chest 1V (Routine) Timeframe: 3 Days Location: Determined by Patient Ordered By: Khadra Hamilton Attending Provider Instructions: You were admitted to the hospital for spontaneous pneumothorax. A chest tube was placed to let out the air that was compressing your lung. A discharge summary will be sent to your primary care physician to ensure continuity of care. Please bring this discharge summary with you to your next office appointment so that your provider can review it at that time. We strongly advise you not to travel by airplane (no flying) for at least 6 weeks from the time your pneumothorax resolves. You should also avoid scuba diving. Unfortunately, your risk of having another episode of pneumothorax is now higher. We advise you to consider blebectomy in the future if you get another pneumothorax. We advise you to follow up with a drafter (cad) electrical. Follow-up appointments: Make a follow-up appointment with your PCP within the next week. It is very important that you follow up with them shortly after discharge from the hospital. Keep all your follow-up appointments as already scheduled. If you cannot make an appointment, notify your provider. Medications: Your medication list has been reviewed and reconciled upon discharge to ensure accuracy and continuity of care. An updated list of all your medications is included with your hospital discharge paperwork. Please review this list closely, and make note of any changes. You have an order for a repeat chest x ray in 3 days, which you should take with you to your follow up appointment. If you have any issues filling these prescriptions, please call [phone] and ask to leave a message for Dr. Alexander. Take your medications as instructed; do not skip a dose of your medicines. Make sure all of your doctors know every medicine you are taking (including cidy-suk-xkyyqzz medicines, vitamins, and supplements). Call your primary care provider before taking any new medicines (including over- the-counter medicines, vitamins, and supplements), because some of these may interact with your current medications, or may make your symptoms worse. Tell your primary care provider if you cannot afford your medications. CONTACT YOUR PRIMARY CARE PROVIDER if you experience any of the following: Worsening of symptoms Fever, chills, or fatigue Difficulty following your treatment plan, or difficulty taking medications CALL 911 OR GO TO THE EMERGENCY DEPARTMENT if you experience any of the following: Sudden, severe abdominal pain or nausea/vomiting Severe chest pain, or chest pain that radiates (moves) to your jaw or arm Sudden, severe shortness of breath or difficulty breathing Thank you for allowing us to participate in your care. Pending Studies at Discharge: No Stand-Alone Forms: My [facility] [employer], Work/School Release, Smoking Cessation Medications and DC Order Prescriptions: Continued trazodone 50 mg Tablet 50 mg PO HS PRN (Reason: Sleep) dextroamphetamine-amphetamine [Adderall] 10 mg Tablet 10 mg PO TID Rx Instructions: administer doses at least 4-6 hours apart medroxyprogesterone [Depo-Provera] 150 mg/mL Syringe 150 mg IM .[id number] Xiidra 5 % Dropperette 1 drp OPHTHALMIC (EYE) DIRECTED PRN (Reason: .dry eye) Rx Instructions: administer approximately 12 hours apart Discharge Orders: Discharge Order (Routine); Ordered 12/31/22 Ordered By: Khadra Alexander Admission Data Admit Date/Time: 12/30/22 22:38 Attending Provider: Artie Herrera Admit Provider: Devora Hitchcock Primary Care Provider: PCP,NO Other Providers: Peter Blackwell ; Justa Box Other Interventions: Discharge Summary Assessment (RN) Last Done: 12/31/22 16:50 Supervising Physician Co-Signing Physician Notes I personally examined the patient and verified all chatman points of history and exam, discussed case, and agree with decision making with Dr Alexander feeling better now that thoravent is removed. Discussions with pulmonarysafe/stable for home. Reviewed chest x-rays and chest CT. Extensive discussion with patient and mother discussing spontaneous pneumothorax, prevalence, next steps in management, risk for recurrence/etc. Patient and mom expressed good understanding. Vitals noted, in general she is awake and alert pleasant no distress. HEENT normocephalic atraumatic mucous membranes moist. Breathing unlabored no accessory muscle use good effort. Skin shows no rashes no pallor or icterus. Neuro without focal deficits. Spontaneous pneumothoraxnow improved. Safe/stable for home. Precautions outlined, risk of recurrence discussed. To follow-up with thoracic surgeon closer to home, obviously return to hospital immediately with any hint of recurrence of symptoms. Otherwise as above, appreciate pulmonary input. Resident Activity Tracking Resident Involvement: Resident Care Provided Care Provided: Adult Hospital Medicine
--- NOTE | 2022-12-31 17:34 | Procedure Note ---
Procedure Note Date of Service December 31, 2022 Note Procedure: Thora vent removal Sketch Maker: Dr. Justa Box Indication: Resolution of pneumothorax Consent: Verbal consent obtained from the patient as well as mother Anesthesia: None Procedure: Under sterile measures and aseptic precautions. The tape of the Thora vent was slowly removed. Patient was anxious and hyperventilating. She was comforted which led to her relaxation and normal breathing. Total wound was removed on exhalation. It was found to be intact. There was minimal oozing of blood around the site for which pressure was applied. No further bleeding was appreciated. Vaseline gauze was applied which was covered by 4 x 4 and silk tape Patient tolerated the procedure well. Complications: None Blood loss: None Coding CPT Codes Pulmonary/Thoracic - Pulmonary and Thoracic: 62601 Remove lung catheter ([id number]) [facility] [place] Codes (Charges) Pulmonary/Thoracic Procedure 1: Pulmonary and Thoracic: 35978 Remove lung catheter
--- NOTE | 2022-12-31 18:41 | Billing Data ---
Date of Service December 31, 2022 Coding Level of Care Code 60885 IN/OBS DISCH 30 MIN/LESS
--- NOTE | 2022-12-31 20:25 | Billing Data ---
Date of Service December 31, 2022 Coding Level of Care Code 44860 INT INP/OBS CARE
--- NOTE | 2023-01-02 06:33 | Electrocardiogram Report ---
Test Reason : Blood Pressure : / mmHG Vent. Rate : 096 BPM Atrial Rate : 096 BPM P-R Int : 108 ms QRS Dur : 078 ms QT Int : 334 ms P-R-T Axes : 081 234 067 degrees QTc Int : 421 ms Sinus rhythm with short NC Right superior axis deviation Poor R wave progression, consider anterior [place] vs. lead placement vs. LVH Abnormal ECG No previous ECGs available Confirmed by Sam Brian ([id number]) on 01/02/2023 6:32:51 AM Referred By: REFERRED SELF Confirmed By:Sam Brian
== END 2022-12-31 17:13 | disposition home or self-care (01) | DRG 201 ==
LOC: ED 20:15 → 2W 22:38 → INTOOBSV 22:38 → SUATTDRO 22:38 → 2W 23:48